=== PATIENT | male | born 1965 | race Caucasian/White ===

== ENCOUNTER 2022-03-03 10:31 | Emergency (ER) | payer OTHER ==
[~2022-03-03] VITALS: Ht 180.3 cm; Wt 120.2 kg
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
--- NOTE | 2022-03-03 10:47 | NUR ---
face mask - offered - but the patient refused to wear face mask
[2022-03-03] MEDS ORDERED: IBUPROFEN 400 MG TABLET ONE (11:18)
[2022-03-03] MEDS ORDERED: IBUPROFEN 400 MG TABLET PO ONE (11:30)
[2022-03-03] MEDS ORDERED: IBUP-1957 PO ×2 (12:34→12:44)
--- NOTE | 2022-03-03 14:01 | NUR ---
Patient discharged to home in stable condition. Written and verbal after care instructions given. Patient verbalizes understanding of instruction.
[2022-03-03 14:02] VITALS: BP 132/68
== END 2022-03-03 14:03 | disposition home or self-care (01) ==
LOC: ER 10:36
DX: S00.83XA Contusion of other part of head, initial encounter (principal); S20.211A Contusion of right front wall of thorax, initial encounter; G89.29 Other chronic pain; Z79.1 Long term (current) use of non-steroidal anti-inflammatories (NSAID); W18.30XA Fall on same level, unspecified, initial encounter; Y93.89 Activity, other specified; Y92.89 Other specified places as the place of occurrence of the external cause; Y99.8 Other external cause status
CPT/HCPCS: 70486-TC; 71100-TC; 71250-TC